=== PATIENT | male | born 1955 | race Caucasian/White ===

== ENCOUNTER 2018-03-27 11:58 | Day surgery (SDC) | payer OTHER ==
[2018-03-27] MEDS ORDERED: PROPOFOL 20 ML (14:47)
[2018-03-27] MEDS ORDERED: ETOMIDATE 20 MG INJ (16:21)
== END 2018-03-27 16:14 | disposition home or self-care (01) ==
LOC: GIL 11:58
DX: K29.30 Chronic superficial gastritis without bleeding (principal); K21.9 Gastro-esophageal reflux disease without esophagitis; E11.9 Type 2 diabetes mellitus without complications; I10 Essential (primary) hypertension; E78.5 Hyperlipidemia, unspecified; E66.9 Obesity, unspecified; Z68.31 Body mass index [BMI] 31.0-31.9, adult
CPT/HCPCS: 43239; 82962; 88305; 88312